=== PATIENT | female | born 1970 | race Caucasian/White ===

== ENCOUNTER → 2016-05-26 | Outpatient (CLI) | payer MEDICAID | LOC: FIMAGING 15:05 | PROVIDERS: ATTEND Family Medicine | DX: D25.9 Leiomyoma of uterus, unspecified (principal); N83.01 Follicular cyst of right ovary; N83.02 Follicular cyst of left ovary; K38.8 Other specified diseases of appendix; N85.4 Malposition of uterus ==

== ENCOUNTER → 2017-04-10 | Outpatient (CLI) | payer MEDICAID | LOC: BMCIMAGING 13:19 | PROVIDERS: ATTEND Family Medicine | DX: N83.291 Other ovarian cyst, right side (principal) ==

== ENCOUNTER → 2018-03-07 | Outpatient (CLI) | payer MEDICAID | LOC: FIMAGING 16:26 | PROVIDERS: ATTEND Family Medicine | DX: K59.00 Constipation, unspecified (principal); D25.9 Leiomyoma of uterus, unspecified; N83.202 Unspecified ovarian cyst, left side ==